=== PATIENT | male | born 1970 | race Caucasian/White ===

== ENCOUNTER 2021-08-30 03:09 | Emergency (ER) | payer OTHER ==
--- OUTSIDE RECORDS SUMMARY | 2021-08-30 03:12 | XMS REPORT | Continuity of Care Document ---
:1970 Author Organization [facility] t Address [address] [place] [address] Care Team Providers Name Role Phone Jennifer HESTER M Attending Clinician Unavailable Pob1, Care Clinic Attending Clinician Unavailable Elroy PATEL Attending Clinician ELROY Attending Clinician Unavailable Payers Payer Name Policy Type Policy Number Effective Date Expiration Date S ource Problems Condition Condition Condition Status Onset Resolution Last Treating Co mments Source Name Details Category Date Date Treatment Clinician Date No known No known Disease Unive rs active active ity of problems problems [facility] Allergies, Adverse Reactions, Alerts Allergy Allergy Status Severity Reaction(s) Onset Inactive Treating Comm ents Source Name Type Date Date Clinician NO KNOWN Drug Active Univers ALLERGIE Class ity of S [facility] Social History Social Habit Start Date Stop Date Quantity Comments Source Sex Assigned At Uni versity [facility] Smoking Status Start Date Stop Date Source Never smoker [facility] Medications Ordered Filled Start Stop Current Ordering Indication Dosage Frequency Signature Comments Components Source Medication Medication Date Date Medication? Clinician (SIG) Name Name eszopiclone 2020-0 Yes 3mg Take 3 mg U nivers 3 mg tablet 3-20 by mouth ity of 00:00: at [place] 00 bedtime. Medical Branch eszopiclone 2020-0 Yes 3mg Take 3 mg U nivers 3 mg tablet 3-20 by mouth ity of 00:00: at [place] 00 bedtime. Medical Branch HYDROcodone 2019-0 Yes TAKE 1 Univ ers -acetaminop 3-19 TABLET BY ity of hen 10-325 00:00: MOUTH [place] mg tablet 00 EVERY 4 TO Medi yadira 6 HOURS Branch NEEDED FOR PAIN LORazepam 2019-0 Yes TAKE 1 Univer s 0.5 mg 3-19 TABLET BY ity of tablet 00:00: MOUTH [place] 00 EVERY DAY Medical NEEDED Branch FOR ANXIETY HYDROcodone 2019-0 Yes TAKE 1 Univ ers -acetaminop 3-19 TABLET BY ity of hen 10-325 00:00: MOUTH [place] mg tablet 00 EVERY 4 TO [facility] 6 HOURS Branch NEEDED FOR PAIN LORazepam 2019-0 Yes TAKE 1 Univer s 0.5 mg 3-19 TABLET BY ity of tablet 00:00: MOUTH [place] 00 EVERY DAY Medical NEEDED Branch FOR ANXIETY dextroamphe 2019-0 Yes 30mg Take 30 mg Univers tamine-amph 3-17 by mouth 2 it y of etamine 30 00:00: (two) [place] mg tablet 00 times Medical daily. Branch dextroamphe 2020-0 Yes 30mg Take 30 mg Univers tamine-amph 3-17 by mouth 2 it y of etamine 30 00:00: (two) [place] mg tablet 00 times Medical daily. Branch PHOSPHO-TRI 2020-0 Yes TK 1 T PO U nivers N 250 2-20 QID ity of NEUTRAL 250 00:00: [place] mg tablet 00 Medical Branch PHOSPHO-TRI 2020-0 Yes TK 1 T PO U nivers N 250 2-20 QID ity of NEUTRAL 250 00:00: [place] mg tablet 00 Medical Branch Vital Signs Vital Name Observation Time Observation Value Comments Source Systolic [facility] 2020-01-03 13:11:00 [facility] Diastolic blood 2020-01-03 13:11:00 84 mm[Hg] Unive rsity of pressure [facility] Heart rate 2020-01-03 13:11:00 63 /min [facility] Body temperature 2020-01-03 13:11:00 36.72 Christel [facility] Respiratory rate 2020-01-03 13:11:00 17 /min [facility] Body height 2020-01-03 13:11:00 182.9 cm [facility] Body weight 2020-01-03 13:11:00 86.183 kg [facility] BMI 2020-01-03 13:11:00 25.77 kg/m2 [facility] Oxygen saturation in 2020-01-03 13:11:00 98 /min [facility] blood by [facility] Pulse oximetry Branch Procedures This patient has no known procedures. Encounters Start End Encounter Admission Attending Care Care Encounter Source Date/Time Date/Time Type Type Clinicians Facility Department ID 2020-01-04 2020-01-04 Telephone SERAFIN Rodriguez [id number] Univers 00:00:00 00:00:00 Karen CUTLER [id number] ity of [facility] [id number] [place] as [phone] [address] 2020-01-03 2020-01-03 Urgent Pob1, Acute Care Clinic [facility] [id number] [facility] 07:58:38 08:18:38 [facility] [id number] ity [facility] [id number] [place] as [place] [phone] [address] Office [address] 2020-01-03 2020-01-03 [id number] Univers 08:00:00 08:00:00 YO avina [facility] Results This patient has no known results.
[2021-08-30 04:23] LABS: Absolute Lymphocytes (CBC) 0.5 K/uL (0.7-4.9); Basophils % 0.3 % (0-1.3); Hematocrit 42.7 % (39.6-49.0); Lymphocytes % 9.2 % (15.3-44.8); MPV 9.2 fL (7.6-11.3); RBC Red Blood Cell Count 4.57 M/uL (4.33-5.43)
[2021-08-30] MEDS ORDERED: ACETAMINOPHEN 500 MG TAB ONE (04:25)
[2021-08-30] MEDS ORDERED: ASPIRIN 325 MG TAB ONE (04:25)
[2021-08-30] MEDS ORDERED: AZITHROMYCIN 250 MG TAB ONE (04:26)
[2021-08-30] MEDS ORDERED: FAMOTIDINE 20 MG TAB ONE (04:26)
[2021-08-30] MEDS ORDERED: NA CHLORIDE 0.9% 1,000 ML ONE (04:39)
[2021-08-30 04:44] LABS: Albumin 3.4 g/dL (3.4-5.0); Bilirubin Total 0.2 mg/dL (0.2-1.0); C-Reactive Protein 15.5 mg/L (<3.00); Ferritin 512.8 ng/mL (26-388); Potassium 3.7 mmol/L (3.5-5.1); Protein, Total 7.3 g/dL (6.4-8.2)
[2021-08-30] MEDS ORDERED: CASIRIVIMAB/IMDEVIMAB 10 ML VIAL ONE (06:02)
[2021-08-30] MEDS ORDERED: NA CHLORIDE 0.9% 250 ML ONE (06:06)
--- NOTE | 2021-08-30 07:09 | ER ---
Nurse's Notes [facility] Name: Nando Olivares Age: 51 yrs Sex: Male : 1970 Arrival Date: 08/30/2021 Time: 03:12 Bed 16 Private MD: Diagnosis: Coronavirus infection, unspecified;Fever, unspecified;Acute upper respiratory infection, unspecified Presentation: 08/30 03:16 Chief complaint: Patient states: general malaise home COVID test positive. Coronavirus da3 screen: Vaccine status: Patient reports being unvaccinated. Ebola Screen: No symptoms or risks identified at this time. Initial Sepsis Screen: Does the patient meet any 2 criteria? No. Patient's initial sepsis screen is negative. Does the patient have a suspected source of infection? No. Patient's initial sepsis screen is negative. Risk Assessment: Do you want to hurt yourself or someone else? Patient reports no desire to harm self or others. Onset of symptoms was August 29, 2021 at 12:00. 03:16 Method Of Arrival: Ambulatory da3 03:16 Acuity: CORBY 3 da3 Triage Assessment: 03:16 General: Appears in no apparent distress. comfortable, Behavior is calm, cooperative. da3 Pain: Denies pain. - Immunization history:: Client reports having NOT received the Covid vaccine. - Social history:: Smoking status: Patient reports the use of cigarette tobacco products, Patient denies any tobacco usage or history of. - Family history:: not pertinent. Screenin:16 Abuse screen: none. Nutritional screening: No deficits noted. Tuberculosis screening: sv1 No symptoms or risk factors identified. Fall Risk None identified. Assessment: 07:21 General: Appears in no apparent distress. comfortable, Behavior is calm, cooperative. al4 Pain: Denies pain. Neuro: Level of Consciousness is awake, alert, obeys commands, Oriented to person, place, time, situation. Cardiovascular: Heart tones present Capillary refill < 3 seconds Patient's skin is warm and dry. Respiratory: Airway is patent Respiratory effort is even, unlabored, Respiratory pattern is regular, symmetrical, Breath sounds are clear bilaterally. GI: Reports diarrhea. : No signs and/or symptoms were reported regarding the genitourinary system. EENT: No signs and/or symptoms were reported regarding the EENT system. Derm: No signs and/or symptoms reported regarding the dermatologic system. Musculoskeletal: No signs and/or symptoms reported regarding the musculoskeletal system. 07:26 Reassessment: Regen-Cov started at 0646 by lieutenant shift supervisor. per protocol, medication will al4 run for 1 hour and then we will begin the post-infusion wait time of 1 hour before discharge. 07:49 Reassessment: Regen-Cov complete. Post infusion hour starting now. patient is alert and al4 awake, denies pain. 08:23 Reassessment: Patient and/or family updated on plan of care and expected duration. Pain al4 level reassessed. Patient is alert, oriented x 3, equal unlabored respirations, skin warm/dry/pink. 08:56 Reassessment: Patient and/or family updated on plan of care and expected duration. Pain al4 level reassessed. Patient is alert, oriented x 3, equal unlabored respirations, skin warm/dry/pink. Patient tolerated Regen-Cov well. No complaints. Denies Pain. Discharge teaching has been completed. Vital Signs: 03:16 BP 125 / 95; Pulse 75; Resp 20; Temp 100.2; Pulse Ox 99% on R/A; Weight 86.18 kg; da3 Height 6 ft. 0 in. (182.88 cm); 04:15 BP 125 / 103; Pulse 76; Resp 18; Temp 98.6; Pulse Ox 96% ; Pain 0/10; sv1 07:00 BP 124 / 84; Pulse 61; Resp 18; Temp 98.6; Pulse Ox 95% ; Pain 0/10; al4 08:00 BP 119 / 84; Pulse 61; Resp 18; Pulse Ox 97% ; Pain 0/10; al4 08:30 BP 112 / 93; Pulse 55; Resp 18; Pulse Ox 95% ; Pain 0/10; al4 03:16 Body Mass Index 25.77 (86.18 kg, 182.88 cm) da3 ED Course: 03:12 Patient arrived in ED. kc5 03:16 Arm band placed on left wrist. da3 03:19 Triage completed. da3 03:51 Yony Power MD is Attending Physician. augie 03:56 Trevor Wang, MIR is Primary Nurse. sv1 04:14 Comprehensive Metabolic Panel Sent. sv1 04:14 CBC with Automated Diff Sent. sv1 04:16 Patient has correct armband on for positive identification. Side rails up X 1. sv1 04:16 No provider procedures requiring assistance completed. Inserted saline lock: 20 gauge sv1 in right antecubital area, using aseptic technique. 04:20 Ferritin Sent. sv1 04:20 CRP Sent. sv1 04:20 Comprehensive Metabolic Panel Sent. sv1 04:20 CBC with Diff Sent. sv1 04:27 Ferritin Sent. sv1 04:27 CRP Sent. sv1 04:32 Comprehensive Metabolic Panel Sent. bb 04:41 Chest Single View XRAY In Process Unspecified. EDMS 07:08 Umberto Freeman MD is Referral Physician. augie 08:55 IV discontinued, intact, bleeding controlled, No redness/swelling at site. Pressure al4 dressing applied. Administered Medications: 04:00 Drug: NS 0.9% 1000 ml Route: IV; Rate: 1 bolus; Site: left antecubital; sv1 04:32 Drug: Pepcid (famotidine) 40 mg Route: PO; bb 04:32 Drug: Tylenol 1000 mg Route: PO; bb 04:33 Drug: Aspirin Chewable Tablet 324 mg Route: PO; bb 04:33 Drug: Zithromax (azithromycin) 500 mg Route: PO; bb 06:46 Drug: Casirivimab-Imdevimab Dose Pack 120 mg/mL-120 mg/mL (EUA) 1 vials Route: IV; sv1 Rate: per protocol; Site: left antecubital; 07:46 Follow up: Response: No adverse reaction; IV Status: Completed infusion al4 Outcome: 07:08 Discharge ordered by . augie 08:59 Discharged to home ambulatory. al4 08:59 Condition: stable 08:59 Discharge instructions given to patient, Instructed on discharge instructions, follow up and referral plans. medication usage, Demonstrated understanding of instructions, follow-up care, medications, Prescriptions given X 09:01 Patient left the ED. 5 Signatures: Dispatcher [employer] EDCT Yony Power MD MD cha Ballard, Brenda, RN RN Charlee Ulloa 5 Nando Sterling, RN RN negar3 Jewell Negro 5 Curtis Salazar al4 Trevor Wang, MIR RN sv1 Corrections: (The following items were deleted from the chart) 07:40 07:00 BP 124 / 84; Pulse 61bpm; Resp 18bpm; Pulse Ox 95%; Pain 0/10; al4 al4
--- NOTE | 2021-08-30 07:09 | EDPHYS ---
Physician Documentation [facility] Name: Nando Olivares Age: 51 yrs Sex: Male : 1970 Arrival Date: 08/30/2021 Time: 03:12 Bed 16 Private MD: LULÚ Physician Yony Power HPI: 08/30 04:44 This 51 yrs old Male presents to ER via Ambulatory with complaints of COVID augie POSITIVE HOME TEST. 04:44 The patient has shortness of breath at rest, with light activity. Onset: The augie symptoms/episode began/occurred 3 day(s) ago. Duration: The symptoms are continuous, and are steadily getting worse. The patient's shortness of breath has no apparent modifying factors. Associated signs and symptoms: Pertinent positives: non-productive cough, fever. Severity of symptoms: At their worst the symptoms were mild in the emergency department the symptoms are unchanged. Severity of symptoms: At their worst the symptoms were mild, in the emergency department the symptoms are unchanged. Modifying factors: The symptoms are alleviated by nothing, the symptoms are aggravated by nothing. The patient reports fever, that was measured at 100.2 degrees Fahrenheit. - Immunization history:: Client reports having NOT received the Covid vaccine. - Social history:: Smoking status: Patient reports the use of cigarette tobacco products, Patient denies any tobacco usage or history of. - Family history:: not pertinent. ROS: 04:44 Constitutional: Negative for fever, chills, and weight loss, Eyes: Negative for injury, augie pain, redness, and discharge, ENT: Negative for injury, pain, and discharge, Neck: Negative for injury, pain, and swelling, Cardiovascular: Negative for chest pain, palpitations, and edema, Abdomen/GI: Negative for abdominal pain, nausea, vomiting, diarrhea, and constipation, Back: Negative for injury and pain, : Negative for injury, bleeding, discharge, and swelling, MS/Extremity: Negative for injury and deformity, Skin: Negative for injury, rash, and discoloration, Neuro: Negative for headache, weakness, numbness, tingling, and seizure, Psych: Negative for depression, anxiety, suicide ideation, homicidal ideation, and hallucinations, Allergy/Immunology: Negative for hives, rash, and allergies, Endocrine: Negative for neck swelling, polydipsia, polyuria, polyphagia, and marked weight changes, Hematologic/Lymphatic: Negative for swollen nodes, abnormal bleeding, and unusual bruising. 04:44 Respiratory: Positive for cough, shortness of breath, at rest. Exam: 04:44 Constitutional: This is a well developed, well nourished patient who is awake, alert, augie and in no acute distress. Head/Face: Normocephalic, atraumatic. Eyes: Pupils equal round and reactive to light, extra-ocular motions intact. Lids and lashes normal. Conjunctiva and sclera are non-icteric and not injected. Cornea within normal limits. Periorbital areas with no swelling, redness, or edema. ENT: Nares patent. No nasal discharge, no septal abnormalities noted. Tympanic membranes are normal and external auditory canals are clear. Oropharynx with no redness, swelling, or masses, exudates, or evidence of obstruction, uvula midline. Mucous membranes moist. Neck: Trachea midline, no thyromegaly or masses palpated, and no cervical lymphadenopathy. Supple, full range of motion without nuchal rigidity, or vertebral point tenderness. No Meningismus. Chest/axilla: Normal chest wall appearance and motion. Nontender with no deformity. No lesions are appreciated. Cardiovascular: Regular rate and rhythm with a normal S1 and S2. No gallops, murmurs, or rubs. Normal PMI, no JVD. No pulse deficits. Respiratory: Lungs have equal breath sounds bilaterally, clear to auscultation and percussion. No rales, rhonchi or wheezes noted. No increased work of breathing, no retractions or nasal flaring. Abdomen/GI: Soft, non-tender, with normal bowel sounds. No distension or tympany. No guarding or rebound. No evidence of tenderness throughout. Back: No spinal tenderness. No costovertebral tenderness. Full range of motion. Male : Normal genitalia with no discharge or lesions. Skin: Warm, dry with normal turgor. Normal color with no rashes, no lesions, and no evidence of cellulitis. MS/ Extremity: Pulses equal, no cyanosis. Neurovascular intact. Full, normal range of motion. Neuro: Awake and alert, GCS 15, oriented to person, place, time, and situation. Cranial nerves II-XII grossly intact. Motor strength 5/5 in all extremities. Sensory grossly intact. Cerebellar exam normal. Normal gait. Psych: Awake, alert, with orientation to person, place and time. Behavior, mood, and affect are within normal limits. Vital Signs: 03:16 BP 125 / 95; Pulse 75; Resp 20; Temp 100.2; Pulse Ox 99% on R/A; Weight 86.18 kg; da3 Height 6 ft. 0 in. (182.88 cm); 04:15 BP 125 / 103; Pulse 76; Resp 18; Temp 98.6; Pulse Ox 96% ; Pain 0/10; sv1 07:00 BP 124 / 84; Pulse 61; Resp 18; Temp 98.6; Pulse Ox 95% ; Pain 0/10; al4 08:00 BP 119 / 84; Pulse 61; Resp 18; Pulse Ox 97% ; Pain 0/10; al4 08:30 BP 112 / 93; Pulse 55; Resp 18; Pulse Ox 95% ; Pain 0/10; al4 03:16 Body Mass Index 25.77 (86.18 kg, 182.88 cm) da3 MDM: 03:52 Patient medically screened. augie 05:09 Differential diagnosis: asthma, Bronchitis CHF exacerbation, Chronic Obstructive augie Pulmonary Disease viral Infection, bacterial infection, URI, bronchitis, pneumonia pneumonia, Pneumothorax pulmonary edema, Pulmonary Embolism Sepsis. Antibiotic administration: The patient is discharged and will get outpatient antibiotics, Zithromax. The patient's Wells Deep Vein Thrombosis Score was calculated as follows: Total Score: 0-2 Pts- Low Risk. Differential Diagnosis: Bronchitis Influenza Upper Respiratory Infection Sinusitis Pharyngitis Asthma Exacerbation Viral Syndrome Pneumonia. The patient's pulmonary embolism risk score was calculated as follows: Total Score: 0-2 points. This patient was found to be at low risk for a pulmonary embolism by using the Well's assessment criteria. Immunization status: Influenza vaccine: Data reviewed: vital signs, nurses notes, lab test result(s), EKG, radiologic studies, plain films. Data interpreted: Pulse oximetry: on room air is 96 %. Test interpretation: by ED physician or midlevel provider: ECG, plain radiologic studies. Counseling: I had a detailed discussion with the patient and/or guardian regarding: the presence of at least one elevated blood pressure reading (>120/80) during this emergency department visit, lab results, radiology results, the need for outpatient follow up, for definitive care, a family practitioner, a rn procedure. 08/30 03:55 Order name: CBC with Diff augie 08/30 03:55 Order name: Comprehensive Metabolic Panel augie 08/30 03:55 Order name: Ferritin augie 08/30 03:55 Order name: CRP [facility] 08/30 03:55 Order name: CBC with Automated Diff EDMS 08/30 03:55 Order name: Comprehensive Metabolic Panel EDMS 08/30 03:55 Order name: Chest Single View XRAY augie Administered Medications: 04:00 Drug: NS 0.9% 1000 ml Route: IV; Rate: 1 bolus; Site: left antecubital; sv1 04:32 Drug: Pepcid (famotidine) 40 mg Route: PO; bb 04:32 Drug: Tylenol 1000 mg Route: PO; bb 04:33 Drug: Aspirin Chewable Tablet 324 mg Route: PO; bb 04:33 Drug: Zithromax (azithromycin) 500 mg Route: PO; bb 06:46 Drug: Casirivimab-Imdevimab Dose Pack 120 mg/mL-120 mg/mL (EUA) 1 vials Route: IV; sv1 Rate: per protocol; Site: left antecubital; 07:46 Follow up: Response: No adverse reaction; IV Status: Completed infusion al4 Disposition Summary: 08/30/21 07:08 Discharge Ordered Location: Home augie Problem: new augie Symptoms: have improved augie Condition: Stable augie Diagnosis - Coronavirus infection, unspecified augie - Fever, unspecified augie - Acute upper respiratory infection, unspecified augie Followup: augie - With: Private Physician - When: 2 - 3 days - Reason: Recheck today's complaints, Continuance of care, Re-evaluation by your physician Followup: augie - With: - When: 2 - 3 days - Reason: Recheck today's complaints, Re-evaluation by your physician Discharge Instructions: - Discharge Summary Sheet augie - Fever, Adult augie - Upper Respiratory Infection, Adult augie - Cool Mist Vaporizer augie - Upper Respiratory Infection, Adult, [id number] augie - Cough, Adult augie - Fever, Adult, [id number] augie - COVID-19 augie - COVID-19 Frequently Asked Questions augie - 10 Things You Can Do to Manage Your COVID-19 Symptoms at Home - [facility] Forms: - Medication Reconciliation Form augie - Thank You Letter augie - Antibiotic Education augie - Prescription Opioid Use augie Prescriptions: - albuterol sulfate 90 mcg/actuation Inhalation HFA aerosol inhaler - inhale 2 puff by INHALATION route every 4-6 hours; 1 puff; Refills: 0, Product [facility] Selection Permitted - ivermectin 3 mg Oral tablet - take 5 tablet by ORAL route once daily days 1, 3 and day #5; 15 tablet; augie Refills: 0, Product Selection Permitted - Pepcid 20 mg Oral Tablet - take 1 tablet by ORAL route every 12 hours for 30 days; 60 tablet; Refills: 0, [facility] Product Selection Permitted - Singulair 10 mg Oral Tablet - take 1 tablet by ORAL route At bedtime; 30 tablet; Refills: 0, Product [facility] Selection Permitted - Zithromax 500 mg Oral Tablet - take 1 tablet by ORAL route once daily for 5 days; 5 tablet; Refills: 0, [facility] Product Selection Permitted Signatures: Dispatcher [employer] Yony Meyer MD MD cha Ballard, Brenda RN RN bb Nando Sterling RN RN da3 Trevor Wang RN RN sv1 Curtis Salazar
--- NOTE | 2021-08-30 07:59 | RAD REPORT ---
EXAM DESCRIPTION: Liz Single View08/30/2021 4:41 am CLINICAL HISTORY: Cough COMPARISON: none FINDINGS: The lungs appear clear of acute infiltrate. The heart is normal size IMPRESSION: No acute abnormalities displayed
[2021-08-30 09:08] VITALS: TEMP 98.6
[2021-08-30 09:14] VITALS: BP 112/93; O2SAT 95
== END 2021-08-30 09:01 | disposition home or self-care (01) ==
LOC: ER 03:09
DX: U07.1 COVID-19 (principal); J06.9 Acute upper respiratory infection, unspecified; Z72.0 Tobacco use
CPT/HCPCS: 96365; 85025; 36415; 82728; 80053; 86140; 71045; 99284; J7050; J7030; M0243